=== PATIENT | male | born 1985 | race Caucasian/White ===

== ENCOUNTER 2023-02-06 11:18 | Outpatient (CLI) | payer BC | END 2023-02-06 11:19 | disposition home or self-care (01) | LOC: NAV RAD 11:18 | PROVIDERS: ATTEND Nurse Practitioner Family | DX: R05.1 Acute cough (principal) | CPT/HCPCS: 71046 ==

== ENCOUNTER 2025-06-15 08:07 | Outpatient (CLI) | payer BC | END 2025-06-15 08:08 | disposition home or self-care (01) | LOC: NAV RAD 08:07 | PROVIDERS: ATTEND Student in an Organized Health Care Education/Training Program | DX: M23.92 Unspecified internal derangement of left knee (principal) ==